=== PATIENT | male | born 1975 | race African-American/Black ===

== ENCOUNTER → 2016-12-23 | Outpatient (CLI) | payer BC, MEDICAID ==
[~2016-12-23] MED LIST: IOHEXOL 350 MG/ML 100ML IJ ONE
[2016-12-23 13:00] VITALS: BP 142/89
[2016-12-23 13:35] VITALS: BP 149/83
== END ==
LOC: Rad HDHVI 12:23
PROVIDERS: ATTEND Internal Medicine Cardiovascular Disease
DX: I63.9 Cerebral infarction, unspecified (principal); G45.9 Transient cerebral ischemic attack, unspecified
CPT/HCPCS: 70496; 70498; G0463; Q9967

== ENCOUNTER 2017-03-24 08:09 | Emergency (ER) | payer BC ==
[~2017-03-24] VITALS: Ht 180.3 cm; Wt 99.8 kg
[2017-03-24 09:50] LABS: Basophils # (auto) 0 uL; Basophils % (auto) 0.4 % (0.0-2.0); CONDITION Y; Eosinophils # (auto) 0 uL; Eosinophils % (auto) 0.5 % (0.0-7.0); Hematocrit 49.3 % (41.0-53.0); Hemoglobin 17.1 g/dL (13.5-17.5); Lymphocytes % (auto) 18.4 % (10.0-50.0); Mean Corpuscular Hemoglobin 31.5 pg (28.0-32.0); Mean Corpuscular Hgb Conc. 34.8 g/dL (32.0-36.0); Mean Corpuscular Volume 90.5 fL (80.0-100.0); Mean Platelet Volume 8.7 fL (7.4-10.4); Monocytes # (auto) 0.4 uL; Monocytes % (auto) 6.7 % (0.0-12.0); Neutrophils # (auto) 3.9 uL; Platelet Count (auto) 236 10^3/uL (140-450); Red Cell Distribution Width 13.5 % (11.6-16.0); White Blood Cell 5.3 10^3/uL (4.4-10.8)
[2017-03-24 10:06] LABS: Albumin 4.3 g/dL (3.4-5.0); Anion Gap 10 (5-15); Aspartate Aminotransferase 15 U/L (15-37); BUN/Creatinine Ratio 14.4; Blood Urea Nitrogen 15 mg/dL (7-18); Calcium 8.5 mg/dL (8.5-10.1); Carbon Dioxide 25 mmol/L (21-32); Chloride 104 mmol/L (98-107); GFR African American 101 mL/min; GFR Non-African American 83 mL/min; Glucose 110 mg/dL (74-106); Magnesium 2.5 mg/dL (1.6-2.6); Potassium 4.1 mmol/L (3.5-5.1); Sodium 139 mmol/L (136-145)
[2017-03-24 10:11] LABS: Alkaline Phosphatase 47 U/L (45-117); Bilirubin, Total 1.1 mg/dL (0.2-1.0); Total Protein 7.8 g/dL (6.4-8.2)
[2017-03-24] MEDS ORDERED: SODIUM CHLORIDE 0.9% 1,000 ML IV ONE ×2 (10:28)
[2017-03-24 10:45] VITALS: BP 127/70
[2017-03-24 11:17] LABS: Urine Bilirubin Negative (Negative); Urine Blood Negative /uL (Negative); Urine Color Yellow (Yellow); Urine Glucose Normal (Normal); Urine Ketone Negative (Negative); Urine Nitrite Negative (Negative); Urine RBC <1 /hpf (0 - 3); Urine Urobilinogen Normal (Negative); Urine pH 6.5 (5.0-8.0)
== END 2017-03-24 12:36 | disposition home or self-care (01) ==
LOC: ER 08:15
DX: E86.0 Dehydration (principal); M79.1 Myalgia; F12.10 Cannabis abuse, uncomplicated; F17.210 Nicotine dependence, cigarettes, uncomplicated
CPT/HCPCS: 36415; 71020; 80053; 80307; 81001; 82962; 83735; 84484; 85025; 93005; 94761; 96360; 99285; J7030

== ENCOUNTER → 2019-10-28 | Outpatient (CLI) | payer BC ==
[2019-10-28 09:10] VITALS: BP 144/78
--- NOTE | 2019-10-28 09:10 | NUR ---
IV insertion IV access obtained, via clean sterile technique by inserting 20 gauge catheter at RAC after 1 attempt(s). IV secured properly. No trauma to site. Patient tolerated procedure well.
--- NOTE | 2019-10-28 09:42 | NUR ---
IV removal IV DC'd with sterile technique, catheter fully intact. Pressure dressing applied to site. Patient tolerated procedure well.
[2019-10-28 09:45] VITALS: BP 142/77
--- NOTE | 2019-10-28 09:45 | NUR ---
[facility] Discharge Instructions See e-MAR for any mediations given with this visit. Patient education given on disease process. Patient verbalized understanding. Previous labs reviewed. Patient discharged in stable condition with after care instructions and follow up appointment. NOTE PATIENT EDUCATED TO DRINK PLENTY OF FLUIDS FOLLOWING IV CONTRAST, PATIENT VERBALIZED UNDERSTANDING.
[2019-10-28 12:10] LABS: Basophils # (auto) 0 uL; Eosinophils # (auto) 0.1 uL; Eosinophils % (auto) 3.5 % (0.0-7.0); Hematocrit 49.4 % (41.0-53.0); Hemoglobin 16.7 g/dL (13.5-17.5); Lymphocytes % (auto) 27.1 % (10.0-50.0); Mean Corpuscular Hemoglobin 29.6 pg (28.0-32.0); Mean Corpuscular Hgb Conc. 33.9 g/dL (32.0-36.0); Mean Corpuscular Volume 87.3 fL (80.0-100.0); Monocytes # (auto) 0.3 uL; Monocytes % (auto) 8.5 % (0.0-12.0); Neutrophils # (auto) 2.3 uL; Neutrophils % (auto) 59.9 % (37.0-80.0); Nucleated Red Blood Cells % 0.3 %; Platelet Count (auto) 232 10^3/uL (140-450); Red Blood Cells 5.66 10^6/uL (4.5-5.90); White Blood Cell 3.8 10^3/uL (4.4-10.8)
[2019-10-28 12:14] LABS: Albumin 4.2 g/dL (3.4-5.0); Potassium 4.2 mmol/L (3.5-5.1)
[2019-10-28 12:17] LABS: BUN/Creatinine Ratio 13.9; Bilirubin, Total 1.4 mg/dL (0.2-1.0)
[2019-10-28 14:48] LABS: Hepatitis A Total Antibody Negative; Hepatitis B Core Total AB Negative
[2019-10-28 14:49] LABS: Hepatitis B Surface Antibody Negative; Hepatitis B Surface Antigen Negative (Negative); Hepatitis C Antibody Negative (Negative)
== END | disposition home or self-care (01) ==
LOC: Rad HDHVI 09:02
PROVIDERS: ATTEND Internal Medicine Cardiovascular Disease
DX: S01.83XA Puncture wound without foreign body of other part of head, initial encounter (principal); D64.9 Anemia, unspecified; I10 Essential (primary) hypertension; Z20.5 Contact with and (suspected) exposure to viral hepatitis; M47.812 Spondylosis without myelopathy or radiculopathy, cervical region; X58.XXXA Exposure to other specified factors, initial encounter; Y93.89 Activity, other specified; Y92.89 Other specified places as the place of occurrence of the external cause; Y99.8 Other external cause status
CPT/HCPCS: 36415; 70486; 70491; 80053; 85025; 86704; 86706; 86708; 86803; 87340; G0463; Q9967